=== PATIENT | female | born 1985 | race Caucasian/White ===

== ENCOUNTER 2017-03-10 11:18 | Emergency (ER) ==
[2017-03-10 11:23] VITALS: BP 133/84; TEMP 97.8; BMI 39.6
[2017-03-10 12:17] LABS: BILIRUBIN,URINE Negative (NEGATIVE); KETONES,URINE Negative (NEGATIVE); LEUKOCYTE ESTERASE ,URINE 3+ (NEGATIVE); NITRITE,URINE Negative (NEGATIVE); PROTEIN,URINE Negative (NEGATIVE); URINE, BLOOD Trace-lysed (NEGATIVE)
[2017-03-10 12:24] LABS: ADD URINE MICROSCOPIC YES
[2017-03-10 12:25] LABS: BACTERIA,URINE 2+ (NOT PRESENT)
[2017-03-10 12:46] LABS: BASOPHILS # (AUTO) 0.1 K/uL (0-0.2); BASOPHILS % (AUTO) 0.2 % (0.0-3.0); EOSINOPHILS # (AUTO) 0.2 K/ul (0.0-0.7); EOSINOPHILS % (AUTO) 0.9 % (0.0-7.0); HEMATOCRIT 38.2 % (37.0-47.0); HEMOGLOBIN 13.2 g/dl (12.0-16.0); IMMATURE GRANULOCYTE % (AUTO) 0.9 % (0.0-5.0); LYMPHOCYTES # (AUTO) 2.4 K/uL (0.60-3.4); LYMPHOCYTES % (AUTO) 11.2 (10.0-50.0); MEAN CORPUSCULAR HEMOGLOBIN 31.6 pg (27.0-31.0); MEAN CORPUSCULAR HGB CONC 34.6 (31.8-35.4); MEAN CORPUSCULAR VOLUME 91.4 fl (81.0-99.0); MONOCYTES # (AUTO) 1.6 K/uL (0.4-2.0); MONOCYTES % (AUTO) 7.3 (0-10); NEUTROPHILS # (AUTO) 17.3 K/ul (2.0-6.9); NEUTROPHILS % (AUTO) 79.5; PLATELET COUNT 412 10^3/uL (140-440); RED BLOOD COUNT 4.18 10^6/ul (4.20-5.40); WHITE BLOOD COUNT 21.76 K/ul (4.6-10.2)
[2017-03-10 13:05] LABS: ALBUMIN 3.3 g/dL (3.4-5.0); ALBUMIN/GLOBULIN RATIO 0.8; ANION GAP 13.2; BILIRUBIN,TOTAL 0.2 mg/dL (0.00-1.20); BUN/CREATININE RATIO 12.35; CALCIUM 10.1 mg/dL (8.2-10.2); CREATININE 0.89 mg/dL (0.60-1.30); POTASSIUM 4.2 mmol/L (3.5-5.10); TOTAL PROTEIN 7.4 g/dL (6.4-8.2)
[2017-03-10] MEDS ORDERED: ZOFRAN 4 MG/2 ML IM STA (13:09)
[2017-03-10] MEDS ORDERED: DILAUDID 2 MG/ML SYRINGE IM STA (13:09)
[2017-03-10 13:13] LABS: URINE PREGNANCY INTERNAL QC INTERNAL QC VALID
--- NOTE | 2017-03-10 13:41 | CT ---
EXAM: CT of the abdomen pelvis without contrast History: Diffuse abdominal pain. Technique: Multiplanar CT images through the abdomen pelvis were obtained without the administration of IV contrast Findings: Lung bases are free of consolidation. No acute osseous abnormalities. No discrete gallsto alfonso identified by CT. No focal liver or splenic lesions. No peripancreatic inflammation. Adrenal g lands are unremarkable. No renal stones and no hydronephrosis. No bowel obstruction. There is infl ammation surrounding the left ovary and adjacent short segment of the left ureter. Left ovary is not significantly enlarged. Inflammation does extend to involve a short segment of the sigmoid colon. No bladder wall thickening. No perirectal inflammation. There are a few borderline enlarged nonspecifi c retroperitoneal lymph nodes. Impression: 1. Inflammation surrounding the left ovary probably related to oophoritis. Ovarian torsion is not ex cluded. Correlate with pelvic ultrasound. 2. The left ovarian inflammation extends to involve a short segment of the left ureter and short seg ment of sigmoid colon. 3. Borderline enlarged nonspecific retroperitoneal lymph nodes
--- NOTE | 2017-03-10 14:44 | US ---
EXAM: PELVIC ULTRASOUND COMPLETE HISTORY: Abdominal and back pain for [address] indicating cannot exclude left ovarian torsion. FINDINGS: Ultrasound pelvis transvaginal Transvaginal approach imaging was performed for improved re solution and anatomic definition. Uterus measured 7.2 x 4.5 x 5.5 cm. Myometrium was unremarkable. Endometrial stripe was symmetric and within normal limits regarding thickness at 0.64 cm. The right ovary measured 5.7 x 3.2 x 4.3 cm and the left ovary 5.2 x 4.2 x 3.4 cm. Both ovaries appe ared to demonstrate adequate blood flow. Both ovaries demonstrated slightly complex cystic masses po ssibly representing a combination of involuting cysts or possible hemorrhagic cysts. Small amount of pelvic ascites likely physiologic. IMPRESSION: 1. No evidence of ovarian torsion. 2. Both ovaries appeared to demonstrate adequate blood flow. Both ovaries demonstrated slightly com plex cystic masses possibly representing involuting cysts or possible hemorrhagic cysts. 3. Small amount of pelvic ascites.
--- NOTE | 2017-03-10 15:02 | ED.PDOC ---
General ED Provider: Dr. FLORES THORPE Chief Complaint: Abdominal Pain Stated Complaint: abdominal pain Time Seen by Physician: 11:20 Mode of Arrival: Walk-In Information Source: Patient Exam Limitations: No limitations Nursing and Triage Documentation Reviewed and Agree: Yes GI Complaint Exam - Abdominal Pain Complaint/Exam Onset: Gradual Duration: chronic / worse today Symptoms Are: Still present Initial Severity: Moderate Current Severity: Mild Location of Pain: LLQ Radiates To: Reports: Flank (left) Aggravating: Reports: None Alleviating: Reports: None Associated Signs and Symptoms: Reports: Back pain. Denies: Diaphoresis, Fever, Cough, Chest pain, Dizziness, Constipation, Blood in stool, Dysuria, Urinary frequency, Decreased urine output, Decreased appetite, Vaginal bleeding, Vaginal discharge, Nausea, Vomiting, Diarrhea, Sore throat, Decreased activity Related History: Reports: Similar episode AAA Risk Factors: Reports: None Cardiac Risk Factors: Reports: None Ectopic Risk Factors: Reports: None Ovarian Torsion Risk Factors: Reports: Reproductive age Surgical Obstruction Risk Factors: Reports: None Related Surgical History: Reports: None Patient Rh Status: Unknown Abdominal Findings: Present: None Differential Diagnoses: Appendicitis, Bowel Obstruction, Diverticulitis, Gastroenteritis, GB, UTI Quality Indicators for AMI: EKG in 10min. Quality Indicators for Cardiac Chest Pain: EKG in 10min. Review of Systems - Review Of Systems Constitutional: Reports: No symptoms Eyes: Reports: No symptoms Ears, Nose, Mouth, Throat: Reports: No symptoms Respiratory: Reports: No symptoms Cardiac: Reports: No symptoms GI: Reports: Abdominal pain (chronic) : Reports: No symptoms Musculoskeletal: Reports: No symptoms Skin: Reports: No symptoms Neurological: Reports: No symptoms Endocrine: Reports: No symptoms Hematologic/Lymphatic: Reports: No symptoms All Other Systems: Reviewed and Negative Past Medical History - Past Medical History Previously Healthy: Yes Endocrine: Reports: None Cardiovascular: Reports: None Respiratory: Reports: None Hematological: Reports: None Gastrointestinal: Reports: None Genitourinary: Reports: None Neuro/Psych: Reports: None Musculoskeletal: Reports: None Cancer: Reports: None Last Menstrual Period: last week - Surgical History General Surgical History: Reports: None - Family History Family History: Reports: None - Social History Smoking Status: Current every day smoker, Light tobacco smoker Hx Substance Use: No Alcohol Screening: Occasionally Physical Exam - Physical Exam Appearance: Well-appearing, No pain distress, Well-nourished Eyes: LYN, EOMI, Conjunctiva clear ENT: Ears normal, Nose normal, Oropharynx normal Respiratory: Airway patent, Breath sounds clear, Breath sounds equal, Respirations nonlabored Cardiovascular: RRR, Pulses normal, No rub, No murmur GI/: Soft, Nontender, No masses, Bowel sounds normal, No Organomegaly Musculoskeletal: Normal strength, ROM intact, No edema, No calf tenderness Skin: Warm, Dry, Normal color Neurological: Sensation intact, Motor intact, Reflexes intact, Cranial nerves intact, Alert, Oriented Psychiatric: Affect appropriate, Mood appropriate Interpretation - Radiology Interpretation Radiology Interpretation By: Radiologist Radiology Results: No acute changes Critical Care Note - Critical Care Note Total Time (mins): 0 Course - Course Hematology/Chemistry: 03/10/17 12:42 03/10/17 12:42 Orders, Labs, Meds: Lab Review 03/10/17 03/10/17 03/10/17 11:40 11:40 12:42 WBC 21.76 H RBC 4.18 L Hgb 13.2 Hct 38.2 MCV 91.4 MCH 31.6 H MCHC 34.6 RDW Coeff of Doni 12.2 Plt Count 412 Immature Gran % (Auto) 0.9 Neut % (Auto) 79.5 Lymph % (Auto) 11.2 [place] % (Auto) 7.3 Eos % (Auto) 0.9 Baso % (Auto) 0.2 Immature Gran # (Auto) 0.2 Neut # 17.3 H Lymph # 2.4 [place] # 1.6 Eos # 0.2 Baso # 0.1 Sodium Potassium Chloride Carbon Dioxide Anion Gap BUN Creatinine Estimated GFR (MDRD) BUN/Creatinine Ratio Glucose Calcium Total Bilirubin AST ALT Alkaline Phosphatase Total Protein Albumin Globulin Albumin/Globulin Ratio Amylase Lipase Urine Color Yellow Urine Clarity Cloudy Urine pH 7.0 Ur Specific [place] 1.015 Urine Protein Negative Urine Glucose (UA) Negative Urine Ketones Negative Urine Blood Trace-lysed Urine Nitrite Negative Urine Bilirubin Negative Urine Urobilinogen 0.2 Ur Leukocyte Esterase 3+ Urine Microscopic RBC 5-10 Urine Microscopic WBC 20-30 Ur Squamous Epith Cells 5-10 Urine Bacteria 2+ Urine Test Negative 03/10/17 12:42 WBC RBC Hgb Hct MCV MCH MCHC RDW Coeff of Doni Plt Count Immature Gran % (Auto) Neut % (Auto) Lymph % (Auto) [place] % (Auto) Eos % (Auto) Baso % (Auto) Immature Gran # (Auto) Neut # Lymph # [place] # Eos # Baso # Sodium 140 Potassium 4.2 Chloride 103 Carbon Dioxide 28 Anion Gap 13.2 BUN 11 Creatinine 0.89 Estimated GFR (MDRD) 74.00 BUN/Creatinine Ratio 12.35 Glucose 91 Calcium 10.1 Total Bilirubin 0.20 AST 13 L ALT 16 Alkaline Phosphatase 53 Total Protein 7.4 Albumin 3.3 L Globulin 4.1 Albumin/Globulin Ratio 0.80 Amylase 18 L Lipase 21 Urine Color Urine Clarity Urine pH Ur Specific [place] Urine Protein Urine Glucose (UA) Urine Ketones Urine Blood Urine Nitrite Urine Bilirubin Urine Urobilinogen Ur Leukocyte Esterase Urine Microscopic RBC Urine Microscopic WBC Ur Squamous Epith Cells Urine Bacteria Urine Test Orders Category Date Time Status AMYLASE Stat LAB 03/10/17 12:42 Completed CBC W/ AUTO DIFF Stat LAB 03/10/17 12:42 Completed COMPREHENSIVE METABOLIC PANEL Stat LAB 03/10/17 12:42 Completed LIPASE Stat LAB 03/10/17 12:42 Completed TEST URINE [URINE ] Stat LAB 03/10/17 11:40 Completed URINALYSIS C & S IF INDICATED Stat LAB 03/10/17 11:40 Completed URINE CULTURE Stat LAB 03/10/17 11:40 Received Hydromorphone HCl/Pf [Dilaudid 2 mg/ml Syringe] MEDS 03/10/17 13:09 Discontinued 0.5 mg IM ONCE STA Ondansetron HCl/Pf [Zofran 4 mg/2 ml] MEDS 03/10/17 13:09 Discontinued 4 mg IM ONCE STA CT ABDOMEN/PELVIS WO CONTRAST Stat RADS 03/10/17 12:34 Completed U/S PELVIS STRINGER VAGINAL/NON OB Stat RADS 03/10/17 13:53 Completed Medications Discontinued Medications Generic Name Dose Route Start Last Admin Trade Name Freq PRN Reason Stop Dose Admin Hydromorphone HCl 0.5 mg 03/10/17 13:09 03/10/17 13:41 Dilaudid 2 Mg/Ml Syringe IM 03/10/17 13:10 0.5 mg ONCE STA Administration Ondansetron HCl 4 mg 03/10/17 13:09 03/10/17 13:42 Zofran 4 Mg/2 Ml IM 03/10/17 13:10 4 mg ONCE STA Administration Vital Signs: Temp Pulse Resp BP Pulse Ox 03/10/17 11:19 97.8 F 103 H 20 133/84 98 Departure - Departure Time of Disposition: 15:03 Disposition: HOME SELF-CARE Discharge Problem: Abdominal pain Instructions: Chronic Abdominal Pain (ED) Condition: Good Pt referred to PMD for follow-up: Yes Additional Instructions: Please call your Family Physician as soon as possible to schedule a follow-up appointment. Allergies/Adverse Reactions: Allergies No Known Allergies Allergy (Verified 03/10/17 11:23) Home Medications: Ambulatory Orders Buspirone HCl 10 mg PO TID 03/10/17 Cholecalciferol (Vitamin D3) [Vitamin D3] 5,000 unit PO DAILY 03/10/17 Sertraline HCl [Zoloft] 100 mg PO DAILY 03/10/17
[2017-03-10] MEDS ORDERED: ROCEPHIN IM STA (15:06)
[2017-03-10] MEDS ORDERED: LIDOCAINE HCL 1% SDV SUBCUT STA (15:06)
== END 2017-03-10 15:44 | disposition home or self-care (01) ==
LOC: ED 11:18
DX: N39.0 Urinary tract infection, site not specified (principal); N83.209 Unspecified ovarian cyst, unspecified side; F17.210 Nicotine dependence, cigarettes, uncomplicated
CPT/HCPCS: 36415; 80053; 81001; 81025; 82150; 83690; 85025; 87086; 96372; 99283

== ENCOUNTER 2018-02-10 21:05 | Emergency (ER) ==
[2018-02-10 21:18] VITALS: BP 154/88; TEMP 99; BMI 41.8
[2018-02-10] MEDS ORDERED: LIDOCAINE HCL 1% SDV IM STA (21:58)
[2018-02-10] MEDS ORDERED: ROCEPHIN IM STA (21:58)
[2018-02-10] MEDS ORDERED: TYLENOL #3 TAB PO STA (21:59)
--- NOTE | 2018-02-10 22:04 | ED.PDOC ---
General ED Provider: Dr. CYDNEY ALVAREZ Chief Complaint: Extremity Swelling/Pain Stated Complaint: Patient states she noted swelling and pain on the left lower leg for two days. Time Seen by Physician: 22:01 Mode of Arrival: Walk-In Information Source: Patient Nursing and Triage Documentation Reviewed and Agree: Yes Does patient meet sepsis criteria?: No System Inflammatory Response Syndrome: Not Applicable Sepsis Protocol: For patient's 13 years and over: Temp is 96.8 and below OR 101 and greater Pulse >90 BPM Resp >20/minute Acutely Altered Mental Status Are patient's symptoms suggestive of a new infection, such as: -Pneumonia -Skin, Soft Tissue -Endocarditis -UTI -Bone, Joint Infection -Implantable Device -Acute Abdominal Infection -Wound Infection -Meningitis -Blood Stream Catheter Infection -Unknown Skin Complaint Exam - Skin/Soft Tissue Complaint/Exam Onset/Duration: 2 days Symptoms Are: Still present Initial Severity: Mild Current Severity: Moderate Location: Left lower leg below knee Character: Reports: Redness, Swelling (mild), Painful Aggravating: Reports: Touch Alleviating: Reports: None Associated Signs and Symptoms: Reports: Tenderness Related History: Denies: Similar episode, Recent trauma (but recently shaved legs ), Foreign body, Insect bite/sting, Recent Med change, Recent inpatient, Recent travel Recent Exposure to Others w/Similar Symptoms: No Skin Findings: Present: Erythema Joint Tenderness Present: No Differential Diagnoses: Cellulitis Review of Systems - Review Of Systems Constitutional: Reports: No symptoms Eyes: Reports: No symptoms Ears, Nose, Mouth, Throat: Reports: No symptoms Respiratory: Reports: No symptoms Cardiac: Reports: No symptoms GI: Reports: No symptoms : Reports: No symptoms Musculoskeletal: Reports: Other (left lower leg swelling ) Skin: Reports: Other (redness to the left leg ) Neurological: Reports: Anxiety Endocrine: Reports: No symptoms Hematologic/Lymphatic: Reports: No symptoms All Other Systems: Reviewed and Negative Past Medical History - Past Medical History Previously Healthy: Yes Endocrine: Reports: None Cardiovascular: Reports: None Respiratory: Reports: None Hematological: Reports: None Gastrointestinal: Reports: None Genitourinary: Reports: None Neuro/Psych: Reports: None Musculoskeletal: Reports: None Cancer: Reports: None Last Menstrual Period: ENDED 10--18 - Surgical History General Surgical History: Reports: None - Family History Family History: Reports: None - Social History Smoking Status: Current every day smoker, Heavy tobacco smoker Hx Substance Use: Yes (MARIJUANA) Alcohol Screening: None - Immunizations Tetanus Shot up to Date: No Physical Exam - Physical Exam Appearance: Ill-appearing, Obese Ill-appearing: Mild Pain Distress: Mild Neck: Supple Respiratory: Airway patent, Breath sounds clear, Breath sounds equal, Respirations nonlabored Cardiovascular: RRR, Pulses normal, No rub, No murmur Musculoskeletal: Edema (mild ) Skin: Warm, Dry (left leg erythema ) Neurological: Alert, Oriented Psychiatric: Anxious Critical Care Note - Critical Care Note Total Time (mins): 0 Course - Course Orders, Labs, Meds: Orders Category Date Time Status Acetaminophen with Codeine [Tylenol #3 Tab] MEDS 02/10/18 21:59 Discontinued 1 tab PO ONCE STA Ceftriaxone Sodium [Rocephin] MEDS 02/10/18 21:58 Discontinued 1 gm IM ONCE STA Lidocaine HCl/Pf [Lidocaine HCl 1% Sdv] MEDS 02/10/18 21:58 Discontinued 2.1 ml IM ONCE STA Medications Discontinued Medications Generic Name Dose Route Start Last Admin Trade Name Yusef PRN Reason Stop Dose Admin Acetaminophen/Codeine Phosphate 1 tab 02/10/18 21:59 02/10/18 22:22 Tylenol #3 Tab PO 02/10/18 22:00 1 tab ONCE STA Administration Ceftriaxone Sodium 1 gm 02/10/18 21:58 02/10/18 22:23 Rocephin IM 02/10/18 21:59 1 gm ONCE STA Administration Lidocaine HCl 2.1 ml 02/10/18 21:58 02/10/18 22:25 Lidocaine Hcl 1% Sdv IM 02/10/18 21:59 2.1 ml ONCE STA Administration Vital Signs: Temp Pulse Resp BP Pulse Ox 02/10/18 21:06 99 F 89 20 154/88 H 96 Departure - Departure Time of Disposition: 22:40 Disposition: HOME SELF-CARE Discharge Problem: Cellulitis Qualifiers: Site of cellulitis: extremity Site of cellulitis of extremity: lower extremity Laterality: left Qualified Code(s): L03.116 - Cellulitis of left lower limb Instructions: Cellulitis (ED) Condition: Stable Pt referred to PMD for follow-up: Yes IPMP verified?: No Additional Instructions: Take medications as prescribed Follow up with PCP / the clinic in 2 days Prescriptions: Cephalexin [Keflex] 500 mg PO Q8HR #30 capsule Allergies/Adverse Reactions: Allergies No Known Allergies Allergy (Verified 02/10/18 21:18) Home Medications: Ambulatory Orders Buspirone HCl 15 mg PO TID 03/10/17 Sertraline HCl [Zoloft] 100 mg PO DAILY 03/10/17 Cephalexin [Keflex] 500 mg PO Q8HR #30 capsule 02/10/18 Hydroxyzine Pamoate 25 mg PO TID PRN 02/10/18 Ibuprofen 400 mg PO Q4H PRN 02/10/18 Prazosin HCl 1 mg PO BEDTIME PRN 02/10/18 Disposition Discussed With: Patient, Family
== END 2018-02-10 22:45 | disposition home or self-care (01) ==
LOC: ED 21:05
DX: L03.116 Cellulitis of left lower limb (principal); F17.210 Nicotine dependence, cigarettes, uncomplicated
CPT/HCPCS: 96372; 99282

== ENCOUNTER 2024-02-12 22:51 | Observation (INO) ==
--- NOTE | 2024-02-12 23:25 | ED.PDOC ---
General ED Provider: Dr. KARINA HENDERSON MD Chief Complaint: Extremity Pain/Injury Stated Complaint: 38 yo WF R arm swelling for a few days. Went to a concert on Friday and was fist pumping in the air that night. The next night her R arm was quite sore and by Friday it was really painful. No other trauma. No history of DVT. No chest pain or SOB. Noticed RUE swelling for 4 days. Hx of HTN and elevated cholesterol. Time Seen by Provider: 02/12/24 23:04 Mode of Arrival: Walk-In Information Source: Patient Exam Limitations: No limitations Primary Care Provider: GRACIELA HOLLY Referred to ED by: Other (self) Nursing and Triage Documentation Reviewed and Agree: Yes Does Patient Take Opioids?: No What is Opioid Naive?: *Opioid Naive implies the patient is not already taking opioids or not chronically receiving opioids on a daily basis. *PRN dosing is not "usually" associated with tolerance. *Patients are at higher risk of over-sedation and aspiration. What is Opioid Tolerant?: *Opioid Tolerance implies less than the expected response to an opioid. *Acquired tolerance is defined by the patient taking 60mg of oral morphine daily (or equianalgesic dose of another opioid) for 1 week or more. *Often associated with chronic pain. *May take more than usual dose to achieve desired pain control. Review of Systems Review Of Systems Constitutional: Reports No symptoms Eyes: Reports No symptoms Ears, Nose, Mouth, Throat: Reports No symptoms Respiratory: Reports No symptoms Cardiac: Reports No symptoms GI: Reports No symptoms Musculoskeletal: Reports Joint pain, Muscle pain (on underside of upper arm. ) and Muscle stiffness; Denies Back pain Skin: Reports No symptoms Neurological: Reports No symptoms Endocrine: Reports No symptoms [facility] Medical History (Updated 09/01/20 @ 00:01 by ) Cyst of ovary, left N83.202 - Unspecified ovarian cyst, left side (ICD-10) Kidney infection N15.9 - Renal tubulo-interstitial disease, unspecified (ICD-10) PTSD (post-traumatic stress disorder) F43.10 - Post-traumatic stress disorder, unspecified (ICD-10) Urinary tract infection N39.0 - Urinary tract infection, site not specified (ICD-10) Surgical History (Updated 12/06/19 @ 08:46 by [employer] [place]) Status post tonsillectomy age 7 Z90.89 - Acquired absence of other organs (ICD-10) Status post tonsillectomy and adenoidectomy age 7 Z90.89 - Acquired absence of other organs (ICD-10) Female Reproductive History Menstrual Hx Hysterectomy: No Hx Tubal Ligation: No Physical Exam Physical Exam Appearance: Reports Obese; Denies Ill-appearing Ill-appearing: None Pain Distress: Moderate Eyes: Reports EOMI Neck: Supple Respiratory: Reports Airway patent, Breath sounds clear and Breath sounds equal; Denies Breath sounds diminished Cardiovascular: Reports RRR, Pulses normal, No rub and No murmur GI/: Reports Nontender, No masses and Bowel sounds normal Musculoskeletal: Reports Normal strength, ROM intact, Limited ROM and Edema (nnt signifia) Skin: Reports Warm Neurological: Reports Sensation intact Psychiatric: Reports Affect appropriate and Mood appropriate Course Course 02/12/24 23:34 02/12/24 23:34 Orders, Labs, Meds: Lab Review 02/12/24 02/13/24 23:34 01:05 WBC 17.77 H RBC 4.29 Hgb 10.0 L Hct 32.3 L MCV 75.3 L MCH 23.3 L MCHC 31.0 L RDW Coeff of Doni 15.1 H Plt Count 257 Immature Gran % (Auto) 0.9 Neut % (Auto) 82.2 H Lymph % (Auto) 5.0 L [place] % (Auto) 10.4 H Eos % (Auto) 1.3 Baso % (Auto) 0.2 Neut # (Auto) 14.6 H Lymph # (Auto) 0.9 [place] # (Auto) 1.9 Eos # (Auto) 0.2 Baso # (Auto) 0.0 Immature Gran # (Auto) 0.2 PT 10.8 INR 1.04 APTT 29.1 Sodium 133.2 L Potassium 3.53 Chloride 97.9 L Carbon Dioxide 23.3 Anion Gap 15.53 BUN 14.3 Creatinine 1.05 Estimated GFR (MDRD) 59.00 BUN/Creatinine Ratio 13.61 Glucose 170.4 H Calcium 8.98 Total Bilirubin 0.35 AST 31.8 ALT 28.3 Alkaline Phosphatase 124.5 Total Creatine Kinase 58.8 Total Protein 6.76 Albumin 3.65 Globulin 3.11 Albumin/Globulin Ratio 1.17 D-Dimer 1324.94 H SARS CoV-2 RNA Rapid LYLE Negative Orders Category Date Time Status ADMIT OBSERVATION [PLACE PATIENT OBSERVATION] .TO ADMISSION 02/13/24 01:06 Ordered MEDSURG (NON-MONITORED BED) PULSE OXIMETRY Routine CARDIO 02/13/24 01:12 Ordered ACTIVITY .Up ad [place] CARE 02/13/24 01:06 Ordered INTAKE & OUTPUT Q8HR CARE 02/13/24 01:10 Ordered IP: INSERT SALINE LOCK ONCE CARE 02/13/24 01:10 Ordered VITAL SIGNS Q4HR CARE 02/13/24 01:11 Ordered REGULAR DIET DIETARY 02/13/24 Breakfast Ordered CBC W/ AUTO DIFF Stat LAB 02/12/24 23:34 Completed COMPREHENSIVE METABOLIC PANEL Stat LAB 02/12/24 23:34 Completed COVID [SARS COV-2 RNA RAPID LYLE] Stat LAB 02/13/24 01:05 Completed CREATINE KINASE Stat LAB 02/12/24 23:34 Completed D-DIMER Stat LAB 02/12/24 23:34 Completed PT WITH INR Stat LAB 02/12/24 23:34 Completed PTT [PARTIAL THROMBOPLASTIN TIME] Stat LAB 02/12/24 23:34 Completed Enoxaparin Sodium [Lovenox] Meds 02/13/24 00:54 Discontinued 100 mg SUBCUT ONCE ONE Enoxaparin Sodium [Lovenox] Meds 02/13/24 13:22 Ordered 100 mg SUBCUT Q12HR Morphine Sulfate [Morphine 4 mg/ml Syringe] Meds 02/13/24 01:12 Ordered 2 mg IVP Q2-4H PRN Morphine Sulfate [Morphine 4 mg/ml Syringe] Meds 02/12/24 23:20 Discontinued 4 mg IM ONCE ONE RESUSCITATION STATUS Routine OTHERS 02/13/24 01:06 Ordered HUMERUS, RIGHT 2 VIEWS Stat RADS 02/12/24 23:20 Completed US VENOUS SCAN RT ARM [U/S VENOUS SCAN RT ARM] Stat RADS 02/13/24 01:12 Ordered Medications Discontinued Medications Generic Name Dose Route Start Last Admin Trade Name Freq PRN Reason Stop Dose Admin Enoxaparin Sodium 100 mg 02/13/24 00:54 02/13/24 00:59 Enoxaparin Sodium 100 Mg/Ml Syr SUBCUT 02/13/24 00:55 100 mg ONCE ONE Administration Morphine Sulfate 4 mg 02/12/24 23:20 02/12/24 23:40 Morphine Sulfate 4 Mg/Ml Syringe IM 02/12/24 23:21 4 mg ONCE ONE Administration Vital Signs: Temp Pulse Resp BP Pulse Ox 02/12/24 22:53 97.8 F 108 H 18 170/77 H 98 Discharge Plan Discharge Patient Disposition: PLACED OBSERVATION Did you review [place] [facility] for ALL controlled substances?: Not Applicable ED Provider: KARINA HENDERSON Condition: Fair Physician Progress Note: Pain is down to a 2/10. Again, no chest pain or SOB. No ultrasound available at night. Will admit, placed on Lovenox 100 mg SC q 12 hours, get U/S to confirm and hopefully transfer to interventional radiologist for peripheral thrombolytic. I have referred patient to [facility] for this before. I called the house head charger and she doesn't know the name of the radiologist that do these procedures.
[2024-02-12] MEDS: MORPHINE 4 MG/ML SYRINGE IM ONE (23:40)
[2024-02-12 23:41] LABS: BASOPHILS % (AUTO) 0.2 % (0.0-3.0); EOSINOPHILS # (AUTO) 0.2 K/ul (0.0-0.7); EOSINOPHILS % (AUTO) 1.3 % (0.0-7.0); HEMATOCRIT 32.3 % (37.0-47.0); IMMATURE GRANULOCYTE # (AUTO) 0.2 (0.0-1.0); IMMATURE GRANULOCYTE % (AUTO) 0.9 % (0.0-5.0); LYMPHOCYTES # (AUTO) 0.9 K/uL (0.60-3.4); MEAN CORPUSCULAR HEMOGLOBIN 23.3 pg (27.0-31.0); MEAN CORPUSCULAR VOLUME 75.3 fl (81.0-99.0); MONOCYTES # (AUTO) 1.9 K/uL (0.4-2.0); MONOCYTES % (AUTO) 10.4 (0-10); NEUTROPHILS # (AUTO) 14.6 K/ul (2.0-6.9); NEUTROPHILS % (AUTO) 82.2 % (42.2-75.2); PLATELET COUNT 257 10^3/uL (140-440); RDW COEFFICIENT OF VARIATION 15.1 % (11.6-14.8); RED BLOOD COUNT 4.29 10^6/ul (4.20-5.40); WHITE BLOOD COUNT 17.77 K/ul (4.6-10.2)
[2024-02-12 23:54] LABS: ALANINE AMINOTRANSFERASE 28.3 U/L (0-35); ALBUMIN 3.65 g/dL (3.5-5.0); ALKALINE PHOSPHATASE 124.5 U/L (38-126); ASPARTATE AMINO TRANSFERASE 31.8 U/L (14-36); BILIRUBIN,TOTAL 0.35 mg/dL (0.2-1.3); BLOOD UREA NITROGEN 14.3 mg/dL (7-17); CALCIUM 8.98 mg/dL (8.4-10.2); CARBON DIOXIDE 23.3 mmol/L (22-30.0); CHLORIDE 97.9 mmol/L (98-107); CREATINE KINASE 58.8 U/L (30-135); CREATININE 1.05 mg/dL (0.60-1.30); GLUCOSE 170.4 mg/dL (74-106); POTASSIUM 3.53 mmol/L (3.5-5.1); SODIUM 133.2 mmol/L (134.5-145); TOTAL PROTEIN 6.76 g/dL (6.3-8.2)
--- NOTE | 2024-02-13 00:05 | DI ---
EXAM: TWO VIEWS OF THE RIGHT HUMERUS. HISTORY: Right arm swelling and pain. Difficulty with movement. No known injury. COMPARISON: None. FINDINGS / IMPRESSION: Soft tissue swelling and edema in the right arm. No acute osseous abnormality.
[2024-02-13 00:07] LABS: PARTIAL THROMBOPLASTIN TIME 29.1 SEC (23.9-40.0); PROTHROMBIN TIME 10.8 SEC (9.3-11.0)
[2024-02-13] MEDS: LOVENOX SUBCUT ONE (00:59)
[2024-02-13 01:22] LABS: SARS COV-2 RNA RAPID NAAT NEGATIVE (NEGATIVE)
[2024-02-13 02:21] VITALS: BMI 39.4
[2024-02-13] MEDS: MORPHINE 4 MG/ML SYRINGE IVP PRN (03:39)
[2024-02-13 05:18] VITALS: BP 136/89; PULSE 92; RESP 18; TEMP 97.2
[2024-02-13] MEDS ORDERED: MORPHINE 2 MG/ML SYRINGE IVP PRN (07:19)
--- NOTE | 2024-02-13 09:26 | US ---
EXAM: RIGHT UPPER EXTREMITY VENOUS DOPPLER DUPLEX HISTORY: Concern for DVT with swelling and pain. COMPARISON: None TECHNIQUE: Sonographic and Doppler evaluation of the right upper extremity veins from the jugular th rough the ulnar veins Augmentation and compression techniques were also performed. Color Doppler and wave spectral evaluation are provided. FINDINGS: There is spontaneous Doppler flow seen in the right upper extremity veins from the jugular through the radial veins. The ulnar and axillary veins not visualized. There is normal compression and augmentation throughout the visualized extremity veins. There is normal color Doppler and wave spectral evaluation. The finn scale imaging demonstrates scattered mild edema. IMPRESSION: No right upper extremity thrombus
[2024-02-13] MEDS: LOVENOX SUBCUT SCH (09:35)
[2024-02-13] MEDS: NORCO 7.5-325 PO PRN (10:53)
--- NOTE | 2024-02-13 11:56 | CT ---
EXAM: CT OF THE RIGHT HUMERUS WITH INTRAVENOUS CONTRAST COMPARISON: Right humerus radiographs 02/12/2024. Right upper extremity venous Doppler 02/13/2024. HISTORY: Significant swelling with pain and limited range of motion at the mid to distal humerus. A ttention to the biceps. TECHNIQUE: CT images were obtained through the right humerus following intravenous administration of 100 mL of Visipaque 320. Axial reconstructions with sagittal and coronal reformats were provided. The submitted images are significantly limited by motion artifact. FINDINGS: Baseline there is marked subcutaneous edema ill-defined subcutaneous fluid circumferential ly throughout the right arm through the visualized axilla and shoulder most pronounced anteromedially at that level and extending circumferentially through the distal portion of the arm and visualized e lbow. This is nonspecific and could be related to cellulitis or lymphedema. There is a more focal r egion of abnormal attenuation measuring up to 3.7 x 3.4 cm in transverse dimension and extending over all length of 11.2 cm along the course of the axillary and brachial neurovascular bundle anteromedial ly along the axilla and shoulder through the upper to mid arm best seen on the axial images. This is located anterior to the neurovascular bundle and measures proximally 27 HU with deep component exten ding along the posteromedial margin of the biceps muscle belly at the mid arm and extending anterior to the triceps at that level. This does not represent a simple fluid collection though could represe nt a complex collections such as abscess or hematoma. Underlying soft tissue mass/neoplastic process cannot be excluded. There are sub-centimeter and mildly enlarged axillary lymph nodes which may be reactive in nature though are nonspecific. No deep soft tissue gas or deep soft tissue wound identif ied. No evidence of acute osteomyelitis. No acute fracture or dislocation. Partially imaged mild to mode rate degenerative change of the elbow and shoulder. No fluid collections along the course of the dis gloria biceps at the elbow. Limited assessment blood vessels on this non angiographic study. IMPRESSION: Technically limited study. Marked soft tissue swelling is nonspecific but could represent cellulitis in the setting of infection . Lymphedema is a differential consideration. 11.2 x 3.7 x 3.4 cm more focal region of abnormal attenuation along the axillary and brachial neurova scular bundle from the level of the shoulder/axilla through the proximal to mid arm. This does not r epresent a simple fluid collection though complex collection such as hematoma or abscess is a conside ration. Deep extension and appearance concerning for adjacent muscle injury and/or myositis. Underl yen neoplastic process/mass cannot be excluded on this study. Correlation with MRI of the right hum erus and MRI of the right shoulder without then with intravenous contrast is recommended for further characterization in addition to correlation with clinical presentation. Mildly enlarged axillary lymph nodes are nonspecific may be reactive in nature though metastatic dise ase/lymphoproliferative process is not excluded. No evidence of an acute fracture or acute osteomyelitis. Degenerative changes of the shoulder and el bow. All CT scans are performed using dose optimization techniques as appropriate to the performed exam an d include at least one of the following: Automated exposure control, adjustment of the mA and/or kV according t o size, and the use of iterative reconstruction technique.
[2024-02-13 12:54] LABS: BASOPHILS % (AUTO) 0.1 % (0.0-3.0); EOSINOPHILS # (AUTO) 0.2 K/ul (0.0-0.7); EOSINOPHILS % (AUTO) 1.1 % (0.0-7.0); HEMATOCRIT 30.9 % (37.0-47.0); HEMOGLOBIN 9.7 g/dl (12.0-16.0); IMMATURE GRANULOCYTE # (AUTO) 0.2 (0.0-1.0); IMMATURE GRANULOCYTE % (AUTO) 1.2 % (0.0-5.0); LYMPHOCYTES # (AUTO) 0.9 K/uL (0.60-3.4); LYMPHOCYTES % (AUTO) 5.5 (10.0-50.0); MEAN CORPUSCULAR HEMOGLOBIN 23.6 pg (27.0-31.0); MEAN CORPUSCULAR HGB CONC 31.4 (31.8-35.4); MEAN CORPUSCULAR VOLUME 75.2 fl (81.0-99.0); MONOCYTES # (AUTO) 1.5 K/uL (0.4-2.0); MONOCYTES % (AUTO) 8.7 (0-10); NEUTROPHILS # (AUTO) 13.9 K/ul (2.0-6.9); NEUTROPHILS % (AUTO) 83.4 % (42.2-75.2); PLATELET COUNT 270 10^3/uL (140-440); RDW COEFFICIENT OF VARIATION 15.1 % (11.6-14.8); RED BLOOD COUNT 4.11 10^6/ul (4.20-5.40); WHITE BLOOD COUNT 16.68 K/ul (4.6-10.2)
--- NOTE | 2024-02-13 14:27 | PCM.SS ---
Provider Provider: JESÚS NUÑEZ PA-C, [facility] Admission Date Admission Date: 02/13/24 Discharge Date Discharge Date: 02/13/24 Primary Care Physician Primary Care Physician: GRACIELA HOLLY Chief Complaint Reason For Visit: DVT History of Present Illness History of Present Illness: Admitted 02/13/24 01:26, this 38 year old /WHITE/F with pmhx of hyperlipidemia, GERD, and depression who presents to ER with worsening right upper extremity swelling. Patient states last Friday she was at a [employer]. She was pumping her fist in the air to the music but otherwise no injuries/trauma. She noted on the drive home Friday her arm felt sore. This progressively worsened over the next few days and she had swelling as well. She tried some antiinflammatories. She felt like Saturday 02/10 it had improved. 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 In the ER the ERP felt she might have a DVT, but ultrasound is unavailable overnight so she was admitted. D dimer elevated, wbc 17. Repeat CBC - wbc count improved mildly. Procal mildly elevated. Pt does have significant swelling of bicep area. Good pulses. Pain is not out of proportion. No sign of trauma. No open wounds near area of concern. She does have a dime sized superficial scab on her hand, but seems unrelated. US negative for DVT. Unable to get MRI today or this weekend. CT humerus w/ contrast ordered. Full report below but some fluid was noted and multiple ddx listed such as abscess, hematoma, muscle injury, neoplastic process, etc. Spoke with adryan Pollard at [facility] in [place]. He was able to review the images. We spoke of her recent history. He recommended getting a CRP but otherwise recommends steroids, antiinflammatories, sling, ice. He states it is reasonable to follow up outpatient for MRI and he can see her outpatient. Appointment made for Friday. Discussed these recommendations to patient. She is politely adamant that she would like an antibiotic as well. Discussed that she has no redness or warmth at this time and the WBC count could be reactive, adding an antibiotic could muddy the water regarding if she were to improve. She would still like to have an antibiotic given her history of having MRSA. Will cover with doxycycline as well as send home with prednisone, norco, and a sling. She was given solumedrol 80 mg IVP prior to discharge. We discussed red flags on when to return such as decreased sensation, fever, redness, worsening swelling. She will f/u with ortho on Friday as scheduled or present sooner if needed. [facility] Medical History Cyst of ovary, left N83.202 - Unspecified ovarian cyst, left side (ICD-10) Kidney infection N15.9 - Renal tubulo-interstitial disease, unspecified (ICD-10) PTSD (post-traumatic stress disorder) F43.10 - Post-traumatic stress disorder, unspecified (ICD-10) Urinary tract infection N39.0 - Urinary tract infection, site not specified (ICD-10) Surgical History Status post tonsillectomy age 7 Z90.89 - Acquired absence of other organs (ICD-10) Status post tonsillectomy and adenoidectomy age 7 Z90.89 - Acquired absence of other organs (ICD-10) Family History Other No known health problems Social History Smoking and tobacco status: Former smoker Medications Mecications: Medications at Discharge (Home Meds & RX) buspirone 10 mg tablet 15 mg PO TID 03/10/17 hydroxyzine pamoate 25 mg capsule 25 mg PO TID PRN ANXIETY/SLEEP 02/10/18 omeprazole 20 mg tablet,delayed release 20 mg PO DAILY 08/24/20 pravastatin 10 mg tablet 10 mg PO BEDTIME 02/12/24 fluoxetine 20 mg capsule 20 mg PO DAILY 02/13/24 Allergies Allergies Allergy/AdvReac Type Severity Reaction Status Date / Time No Known Allergies Allergy Verified 02/12/24 23:12 Review of Systems Constitutional: Denies Fever Head: Reports Normocephalic and Atraumatic Cardiovascular: Denies Chest pain Respiratory: Denies Cough or Shortness of air Gastrointestinal: Denies Nausea, Vomiting, Diarrhea, Abdominal pain or Melena Genitourinary: Denies Dysuria or Frequency Musculoskeletal: Reports Other (+RUE pain and swelling ) Dermatologic: Denies Rashes Neurological: Denies Dizziness, Syncope, Numbness or Weakness Physical Examination Appearance: Positive Well-appearing, Well-nourished, No Apparent Distress and Alert and Oriented x3 Head: Positive Normocephalic and Atraumatic Neck: Positive Supple and Non-Tender Heart: Positive RRR Respiratory: Positive Breath Sounds Clear, Bilaterally and Respirations Nonlabored GI/: Positive Soft, Nontender, Bowel sounds normal and No Distention Neurological: Positive Cranial nerves intact, Alert and Oriented Psychiatric: Positive Normal Judgement, Normal Insight and Affect Appropriate Additional Findings: +RUE - significant swelling to bicep area. No cellulitis noted. No open wounds. No streaking noted. Patient has pain with palpation of bicep area and pain with ROM of shoulder especially with flexion and abduction. She does have good ROM of her right elbow. Pulses easily palpable. Pain is not out of proportion given condition. Sensation intact. Vital Signs (Last 4 Hours) Vital Signs Last 4 Hours: Vital Signs: Last 4 Hours 02/13/24 11:00 02/13/24 12:00 02/13/24 12:33 Oxygen Delivery Method Room Air Room Air Room Air Telemetry Type Telemetry Monitoring Telemetry Heart Rate EKG TX Interval EKG QRS Interval Telemetry Strip Reading 02/13/24 13:00 Oxygen Delivery Method Telemetry Type Remote Telemetry Telemetry Monitoring Continues Telemetry Heart Rate 86 EKG TX Interval 0.14 EKG QRS Interval 0.08 Telemetry Strip Reading sr Labs This Visit Labs This Visit: Labs This Visit 02/12/24 02/13/24 02/13/24 23:34 01:05 12:35 WBC 17.77 H 16.68 H RBC 4.29 4.11 L Hgb 10.0 L 9.7 L Hct 32.3 L 30.9 L MCV 75.3 L 75.2 L MCH 23.3 L 23.6 L MCHC 31.0 L 31.4 L RDW Coeff of Doni 15.1 H 15.1 H Plt Count 257 270 Immature Gran % (Auto) 0.9 1.2 Neut % (Auto) 82.2 H 83.4 H Lymph % (Auto) 5.0 L 5.5 L [place] % (Auto) 10.4 H 8.7 Eos % (Auto) 1.3 1.1 Baso % (Auto) 0.2 0.1 Neut # (Auto) 14.6 H 13.9 H Lymph # (Auto) 0.9 0.9 [place] # (Auto) 1.9 1.5 Eos # (Auto) 0.2 0.2 Baso # (Auto) 0.0 0.0 Immature Gran # (Auto) 0.2 0.2 PT 10.8 INR 1.04 APTT 29.1 Sodium 133.2 L Potassium 3.53 Chloride 97.9 L Carbon Dioxide 23.3 Anion Gap 15.53 BUN 14.3 Creatinine 1.05 Estimated GFR (MDRD) 59.00 BUN/Creatinine Ratio 13.61 Glucose 170.4 H Calcium 8.98 Total Bilirubin 0.35 AST 31.8 ALT 28.3 Alkaline Phosphatase 124.5 Total Creatine Kinase 58.8 Total Protein 6.76 Albumin 3.65 Globulin 3.11 Albumin/Globulin Ratio 1.17 Procalcitonin 0.33 H D-Dimer 1324.94 H SARS CoV-2 RNA Rapid LYLE Negative Imaging Imaging: EXAM: RIGHT UPPER EXTREMITY VENOUS DOPPLER DUPLEX HISTORY: Concern for DVT with swelling and pain. COMPARISON: None TECHNIQUE: Sonographic and Doppler evaluation of the right upper extremity veins from the jugular through the ulnar veins Augmentation and compression techniques were also performed. Color Doppler and wave spectral evaluation are provided. FINDINGS: There is spontaneous Doppler flow seen in the right upper extremity veins from the jugular through the radial veins. The ulnar and axillary veins not visualized. There is normal compression and augmentation throughout the visualized extremity veins. There is normal color Doppler and wave spectral evaluation. The finn scale imaging demonstrates scattered mild edema. IMPRESSION: No right upper extremity thrombus EXAM: CT OF THE RIGHT HUMERUS WITH INTRAVENOUS CONTRAST COMPARISON: Right humerus radiographs 02/12/2024. Right upper extremity venous Doppler 02/13/2024. HISTORY: Significant swelling with pain and limited range of motion at the mid to distal humerus. Attention to the biceps. TECHNIQUE: CT images were obtained through the right humerus following intravenous administration of 100 mL of Visipaque 320. Axial reconstructions with sagittal and coronal reformats were provided. The submitted images are significantly limited by motion artifact. FINDINGS: Baseline there is marked subcutaneous edema ill-defined subcutaneous fluid circumferentially throughout the right arm through the visualized axilla and shoulder most pronounced anteromedially at that level and extending circumferentially through the distal portion of the arm and visualized elbow. This is nonspecific and could be related to cellulitis or lymphedema. There is a more focal region of abnormal attenuation measuring up to 3.7 x 3.4 cm in transverse dimension and extending overall length of 11.2 cm along the course of the axillary and brachial neurovascular bundle anteromedially along the axilla and shoulder through the upper to mid arm best seen on the axial images. This is located anterior to the neurovascular bundle and measures proximally 27 HU with deep component extending along the posteromedial margin of the biceps muscle belly at the mid arm and extending anterior to the triceps at that level. This does not represent a simple fluid collection though could represent a complex collections such as abscess or hematoma. Underlying soft tissue mass/neoplastic process cannot be excluded. There are sub-centimeter and mildly enlarged axillary lymph nodes which may be reactive in nature though are nonspecific. No deep soft tissue gas or deep soft tissue wound identified. No evidence of acute osteomyelitis. No acute fracture or dislocation. Partially imaged mild to moderate degenerative change of the elbow and shoulder. No fluid collections along the course of the distal biceps at the elbow. Limited assessment blood vessels on this non angiographic study. IMPRESSION: Technically limited study. Marked soft tissue swelling is nonspecific but could represent cellulitis in the setting of infection. Lymphedema is a differential consideration. 11.2 x 3.7 x 3.4 cm more focal region of abnormal attenuation along the axillary and brachial neurovascular bundle from the level of the shoulder/axilla through the proximal to mid arm. This does not represent a simple fluid collection though complex collection such as hematoma or abscess is a consideration. Deep extension and appearance concerning for adjacent muscle injury and/or myositis. Underlying neoplastic process/mass cannot be excluded on this study. Correlation with MRI of the right humerus and MRI of the right shoulder without then with intravenous contrast is recommended for further characterization in addition to correlation with clinical presentation. Mildly enlarged axillary lymph nodes are nonspecific may be reactive in nature though metastatic disease/lymphoproliferative process is not excluded. No evidence of an acute fracture or acute osteomyelitis. Degenerative changes of the shoulder and elbow. Review Review Statement: I have independently reviewed and interpreted the labs/EKGs/imaging that were ordered by the ER provider. I have reviewed all outside records that are available currently in our EMR including imaging/notes/labs from previous visits. Plan Reccomendations/Plan: 1. Right upper extremity swelling - US RUE ordered and ruled out DVT. CT RUE ordered w/ contrast. Unable to get MRI. Pain control, elevation, ice prn. 2. Hyperlipidemia - Cont home meds 3. GERD - Cont home meds 4. Depression - Cont home meds Repeat CBC - wbc count improved mildly. Procal mildly elevated. Pt does have significant swelling of bicep area. Good pulses. Pain is not out of proportion. No sign of trauma. No open wounds near area of concern. She does have a dime sized superficial scab on her right hand, but seems unrelated. US negative for DVT. Unable to get MRI today or this weekend. CT humerus w/ contrast ordered. Full report above but some fluid was noted and multiple ddx listed such as abscess, hematoma, muscle injury, neoplastic process, etc. No fx or osteo. Spoke with adryan Pollard at [facility] in [place]. He was able to review the images. Appreciate his recs. We spoke of her recent history. He recommended adding a CRP which is a send out but otherwise recommends steroids, antiinflammatories, sling, ice. He states it is reasonable to follow up outpatient for MRI and he can see her outpatient. Appointment made for Friday. Discussed these recommendations to patient. She is politely adamant that she would like an antibiotic as well. Discussed that she has no redness or warmth at this time and the WBC count could be reactive, adding an antibiotic could muddy the water regarding if she were to improve. She would still like to have an antibiotic given her history of having MRSA. Will cover with doxycycline as well as send home with prednisone, norco, and a sling. She was given solumedrol 80 mg IVP prior to discharge. We discussed red flags on when to return such as decreased sensation, fever, redness, worsening swelling. She will f/u with ortho on Friday as scheduled or present sooner if needed. Will ask CM to fax dc summary and labs to Dr. Sanders's office for review. Discharge diagnoses: 1. Right upper extremity swelling and pain 2. Hyperlipidemia 3. GERD 4. Depression Additional Planning: Case discussed with ED Physician, Dr. Jimenez. DVT Prophylaxis: Lovenox [facility] Plannin minutes spent discussing advance care planning. Admit to: Obs Discussed Plan of Care with Dr. Mackenzie Cerda. Review With Patient Reviewed with Patient and Family: Patient and family have been counseled on condition and care plan and have no immediate questions. I have personally discussed and reviewed the patient's visit/current labs/imaging/decision making with Dr. Mackenzie Cerda, my supervising attending. Total number of minutes spent with patient [85] min. More than 50% of the time spent with this patient was devoted to counseling and coordination of care. Time of Admission:02/13/24 01:26 Time of Discharge: 02/13/24 1445 Discharge Plan Discharge Discharge Orders: Discharge Patient (ONCE); Ordered 02/13/24 Ordered By: JESÚS NUÑEZ Activity Restrictions/Additional Instructions: DISCHARGE TO HOME DX: RIGHT UPPER ARM SWELLING F/U WITH DR. SANDERS ON FRIDAY SCHEDULED RETURN TO ER WITH WORSENING SYMPTOMS - FEVER, REDNESS, WORSENING SWELLING NO DRIVING WITH NARCOTICS WEAR SLING ICE MULTIPLE TIMES PER DAY START STEROIDS TOMORROW (YOU GOT SOME THROUGH YOUR IV TODAY) Instructions: Arm Pain (ED) Care Plan Goals: Problem: Alteration in Comfort/Pain Goal: Manage pain at a tolerable level Instructions: Monitor character, location and intensity Express expectations of pain relief Pain medication as ordered Position for maximal comfort Pain management prior to activities Patient Disposition: HOME SELF-CARE Prescriptions: New hydrocodone-acetaminophen 7.5-325 mg Tablet 1 tab PO Q6HR PRN (Reason: pain) Qty: 14 0RF prednisone 20 mg tablet 20 mg PO BID 5 Days Qty: 10 0RF doxycycline monohydrate 100 mg capsule 100 mg PO BID 7 Days Qty: 14 0RF Continued buspirone 10 MG tablet 15 mg PO TID omeprazole 20 mg Tablet,Delayed Release (Dr/Ec) 20 mg PO DAILY pravastatin 10 mg tablet 10 mg PO BEDTIME fluoxetine 20 mg capsule 20 mg PO DAILY hydroxyzine pamoate 25 MG capsule 25 mg PO TID PRN (Reason: ANXIETY/SLEEP) Did you review [place] WARRANT CLERK for ALL controlled substances?: Yes Discussed opioids are addictive and Narcan is available by prescription or from pharmacy.: Yes Condition: Stable Referrals: MARY ELLEN SANDERS [REFERRING] - 02/16/24 10:10 am
[2024-02-13] MEDS: SOLU-MEDROL 125 MG IVP ONE (15:29)
== END 2024-02-13 16:09 | disposition home or self-care (01) ==
LOC: ED 22:51 → MEDSURG B 22:51
PROVIDERS: ADMIT Hospitalist; ATTEND Physician Assistant
DX: K21.9 Gastro-esophageal reflux disease without esophagitis; E78.5 Hyperlipidemia, unspecified; R79.1 Abnormal coagulation profile; F32.A Depression, unspecified; R60.0 Localized edema; Z20.822 Contact with and (suspected) exposure to COVID-19; M79.601 Pain in right arm